=== PATIENT | female | born 1965 ===

== ENCOUNTER 2022-09-24 08:00 | Inpatient (IN) | payer OTHER ==
[~2022-09-24] VITALS: Ht 172.7 cm; Wt 95.3 kg
[2022-09-24] MEDS ORDERED: ZYRTEC10 M3 PO (09:34)
[2022-10-01] MEDS ORDERED: XARELTO10 MG PO (06:37)
[2022-10-01] MEDS ORDERED: OXYC1TAB9 PO (06:37)
[2022-10-01] MEDS ORDERED: BACTRIM DS TAB1 EACH PO (06:37)
[2022-10-01] MEDS ORDERED: INTEGRA PLUS C1 EACH PO (06:37)
== END 2022-10-02 18:20 | DRG 470 ==
LOC: O/R 09-29 06:00 → SURG 09-29 08:00
PROVIDERS: ADMIT Orthopaedic Surgery Sports Medicine; ATTEND Orthopaedic Surgery Sports Medicine
PROC: 0SRD0J9 Replacement of Left Knee Joint with Synthetic Substitute, Cemented, Open Approach (ICD-10-PCS; principal; 2022-09-29 14:00)
PROC: 30233N1 Transfusion of Nonautologous Red Blood Cells into Peripheral Vein, Percutaneous Approach (ICD-10-PCS; 2022-10-02)
DX: M17.12 Unilateral primary osteoarthritis, left knee (principal); Z96.652 Presence of left artificial knee joint; J45.909 Unspecified asthma, uncomplicated; D64.9 Anemia, unspecified

== ENCOUNTER 2023-12-29 08:01 | Outpatient (CLI) | payer OTHER ==
[~2023-12-29] VITALS: Ht 172.7 cm; Wt 96.2 kg
[~2023-12-29 08:01] MED LIST: BACTRIM DS TAB1 EACH PO; INTEGRA PLUS C1 EACH PO; OXYC1TAB9 PO; XARELTO10 MG PO; ZYRTEC10 M3 PO
[2023-12-29] MEDS ORDERED: ALBUTEROL (08:17)
[2023-12-29 08:30] LABS: URINE APPEARANCE Clear; URINE BILIRRUBIN Negative (NEGATIVE); URINE BLOOD Negative; URINE COLOR Yellow; URINE GLUCOSE Negative (NEGATIVE); URINE KETONE Trace (NEGATIVE); URINE LEUKOCYTE Negative; URINE NITRATE Negative; URINE PROTEIN Negative (NEGATIVE); URINE UROBILINOGEN 0.2 E.U./dl
[2023-12-29 08:34] LABS: URINE BACTERIA 2759.2 uL (0.0-1933); URINE EPITHELIAL CELLS 40.7 uL (0.0-38.8); URINE RBC 26.7 uL (0.0-20.8); URINE WBC 18.5 uL (0.0-23.2)
[2023-12-29 08:37] LABS: HEMATOCRIT 38.4 % (36.0-45.00); HEMOGLOBIN 12.6 g/dL (12.0-15.00); MEAN CELL VOLUME 92.6 fL (80.00-100.00); MEAN CORPUSCULAR HEMOGLOBIN 30.4 pg (27.00-32.0); MEAN CORPUSCULAR HGB CONC 32.8 g/dl (32.0-36.0); PLATELET COUNT 380 K/uL (150-450); RED BLOOD COUNT 4.15 M/uL (4.00-6.00)
[2023-12-29 08:51] LABS: INR 0.95; PARTIAL THROMBOPLASTIN TIME 28.8 SECONDS (22.0-34.0); PROTHROMBIN TIME 10.4 SECONDS (9.0-11.5)
[2023-12-29 09:29] LABS: ALBUMIN 3.9 gm/dL (3.4-5.0); BILIRUBIN TOTAL 0.7 mg/dL (0.3-1.2); CALCIUM 9.4 mg/dL (8.5-10.1); CREATININE SERUM 0.74 mg/dL (0.55-1.02); GFR 80.89; GLOBULINA 4.1 G/DL (2.4-3.5); POTASSIUM 3.7 mEq/L (3.5-5.1)
== END 2023-12-29 08:02 | disposition home or self-care (01) ==
LOC: RAD 08:01 → SURH 01-04 07:00 → EDSTATUS 01-04 07:00 → SURH 01-04 17:00
PROVIDERS: ATTEND Orthopaedic Surgery Sports Medicine
DX: D68.9 Coagulation defect, unspecified (principal); Z01.818 Encounter for other preprocedural examination; I10 Essential (primary) hypertension

== ENCOUNTER 2024-02-16 07:45 | Inpatient (IN) | payer OTHER ==
[~2024-02-16] VITALS: Ht 264.2 cm; Wt 98.0 kg
[~2024-02-16 07:45] MED LIST changes: +ALBUTEROL
[2024-02-16 09:16] LABS: HEMATOCRIT 35.7 % (36.0-45.00); HEMOGLOBIN 12.1 g/dL (12.0-15.00); MEAN CELL VOLUME 92.4 fL (80.00-100.00); MEAN CORPUSCULAR HEMOGLOBIN 31.3 pg (27.00-32.0); MEAN CORPUSCULAR HGB CONC 33.9 g/dl (32.0-36.0); PLATELET COUNT 372 K/uL (150-450); RED BLOOD COUNT 3.87 M/uL (4.00-6.00); RED CELL DISTRIBUTION WIDTH 12.5 % (11.5-14.5)
[2024-02-16 09:35] LABS: PH,URINE 5.5 (5.0-8.0); URINE APPEARANCE Clear; URINE BILIRRUBIN Negative (NEGATIVE); URINE BLOOD Negative; URINE COLOR Yellow; URINE GLUCOSE Negative (NEGATIVE); URINE KETONE Negative (NEGATIVE); URINE LEUKOCYTE Negative; URINE NITRATE Negative; URINE PROTEIN Negative (NEGATIVE)
[2024-02-16 09:36] LABS: INR 0.96; PARTIAL THROMBOPLASTIN TIME 28.5 SECONDS (22.0-34.0); PROTHROMBIN TIME 10.5 SECONDS (9.0-11.5)
[2024-02-16 09:39] LABS: URINE BACTERIA 812.6 uL (0.0-1933); URINE EPITHELIAL CELLS 5.6 uL (0.0-38.8); URINE RBC 6.3 uL (0.0-20.8); URINE WBC 12.9 uL (0.0-23.2)
[2024-02-16 09:41] LABS: URINE CAST 0.44 uL (0.0-1.40)
[2024-02-16 10:14] LABS: ALBUMIN 3.7 gm/dL (3.4-5.0); BILIRUBIN TOTAL 0.85 mg/dL (0.3-1.2); CALCIUM 9.3 mg/dL (8.5-10.1); CREATININE SERUM 0.72 mg/dL (0.55-1.02); GFR 83.49; GLOBULINA 3.9 G/DL (2.4-3.5); POTASSIUM 4.33 mEq/L (3.5-5.1); TOTAL PROTEIN 7.6 gm/dL (6.4-8.2)
[2024-02-16 12:28] VITALS: BP 132/82
[2024-02-29] MEDS ORDERED: KETOROLAC TROMETHAMINE 60 MG VIAL IM ONE (16:03)
[2024-02-29] MEDS ORDERED: TRANEXAMIC ACID 100MG/1ML (1000MG) AMPUL IV ONE (16:04)
[2024-02-29] MEDS ORDERED: CEFAZOLIN SODIUM 1,000 MG VIAL ONE (16:04)
[2024-02-29] MEDS ORDERED: LIDOCAINE HCL 1%/EPINEPHRINE 20ML VIAL IJ ONE (16:04)
[2024-02-29] MEDS ORDERED: POLYMYXIN B SULFATE 500,000 U VIAL ONE (16:04)
[2024-02-29] MEDS ORDERED: POVIDONE-IODINE 118 ML BOTT TOP ONE (16:06)
[2024-02-29] MEDS ORDERED: VANCOMYCIN HCL 1,000 MG VIAL ONE (16:06)
[2024-02-29] MEDS ORDERED: LIDOCAINE HCL 1% 20 ML VIAL IJ ONE (16:45)
[2024-02-29] MEDS ORDERED: BACITRACIN 15 GM OINT.TUBE TOP ONE (16:45)
[2024-02-29] MEDS ORDERED: MORPHINE SULFATE 4 MG/ML VIAL IV ONE ×4 (20:00→21:45)
[2024-02-29] MEDS ORDERED: CEFAZOLIN SODIUM 1,000 MG VIAL IV SCH (20:11)
[2024-02-29] MEDS ORDERED: SODIUM CHLORIDE 0.45 % 1,000 ML IV SCH (20:15)
[2024-02-29] MEDS ORDERED: ONDANSETRON HCL 2 MG/ML VIAL IV PRN (20:15)
[2024-02-29] MEDS ORDERED: MORPHINE SULFATE 4 MG/ML VIAL IV PRN (20:15)
[2024-02-29] MEDS ORDERED: GENTAMICIN SULFATE 40 MG/ML VIAL IV SCH (21:00)
[2024-02-29] MEDS ORDERED: CEFAZOLIN SODIUM 1,000 MG VIAL IV ONE (21:30)
[2024-02-29 22:10] VITALS: BP 124/74; O2SAT 97
[2024-02-29 23:41] LABS: HEMATOCRIT 33.1 % (36.0-45.00); HEMOGLOBIN 11.1 g/dL (12.0-15.00); RED BLOOD COUNT 3.63 M/uL (4.00-6.00)
[2024-03-01] VITALS: BP 124/72; O2SAT 99
[2024-03-01 07:44] LABS: HEMATOCRIT 32.6 % (36.0-45.00); HEMOGLOBIN 11.1 g/dL (12.0-15.00); MEAN CELL VOLUME 91.2 fL (80.00-100.00); MEAN CORPUSCULAR HEMOGLOBIN 31.2 pg (27.00-32.0); MEAN CORPUSCULAR HGB CONC 34.2 g/dl (32.0-36.0); PLATELET COUNT 311 K/uL (150-450); RED BLOOD COUNT 3.58 M/uL (4.00-6.00); RED CELL DISTRIBUTION WIDTH 12.8 % (11.5-14.5)
[2024-03-01] MEDS ORDERED: ACETAMINOPHEN WITH CODEINE 1 UDTAB TABLET PO PRN (07:45)
[2024-03-01 08:36] VITALS: BP 138/70; O2SAT 99
[2024-03-01] MEDS ORDERED: IRON FUM,PS/FOLIC/BCOMP,C NO.9 1 CAP CAPSULE PO SCH (09:00)
[2024-03-01] MEDS ORDERED: BACITRACIN 28.35 GM OINT.TUBE TOP SCH (09:00)
[2024-03-01] MEDS ORDERED: RIVAROXABAN 10 MG TAB PO SCH (09:00)
[2024-03-01] MEDS ORDERED: SENNA/DOCUSATE SODIUM 1 TAB TABLET PO SCH (09:00)
[2024-03-01 19:27] VITALS: BP 125/76; O2SAT 97
[2024-03-02 00:18] VITALS: BP 113/54; O2SAT 98
[2024-03-02] MEDS ORDERED: XARELTO10 MG PO (06:40)
[2024-03-02] MEDS ORDERED: INTEGRA PLUS C1 EACH PO (06:40)
[2024-03-02] MEDS ORDERED: Septra Ds Tablet PO (06:40)
[2024-03-02] MEDS ORDERED: ACETAMINOPHEN-1 EAC2 PO (06:41)
[2024-03-02 07:56] LABS: HEMATOCRIT 30.5 % (36.0-45.00); HEMOGLOBIN 10.3 g/dL (12.0-15.00); MEAN CELL VOLUME 92.4 fL (80.00-100.00); MEAN CORPUSCULAR HEMOGLOBIN 31.2 pg (27.00-32.0); MEAN CORPUSCULAR HGB CONC 33.7 g/dl (32.0-36.0); PLATELET COUNT 301 K/uL (150-450); RED CELL DISTRIBUTION WIDTH 12.5 % (11.5-14.5)
[2024-03-02] MEDS ORDERED: SULFAMETHOXAZOLE/TRIMETHOPRIM DS 1 TAB PO SCH (09:00)
== END 2024-03-02 12:01 | disposition home or self-care (01) | DRG 470 ==
LOC: SURH 02-29 07:45 → O/R 02-29 08:43 → SURH 02-29 10:30 → SURG 02-29 21:01
PROVIDERS: ADMIT Orthopaedic Surgery Sports Medicine; ATTEND Orthopaedic Surgery Sports Medicine
PROC: 0SR90JZ Replacement of Right Hip Joint with Synthetic Substitute, Open Approach (ICD-10-PCS; principal; 2024-02-29 10:30)
DX: M16.11 Unilateral primary osteoarthritis, right hip (principal)